=== PATIENT | male | born 2000 | race Two or more races ===

== ENCOUNTER 2025-08-20 17:07 | Emergency (ER) | payer SELFPAY ==
--- NOTE | ~2025-08-20 | XR_ITS ---
EXAMINATION: XR CERVICAL SPINE CLINICAL INFORMATION: Right neck pain COMPARISON: None available. TECHNIQUE: AP lateral and atlantoodontoid views. FINDINGS: Craniocervical junction is intact. No acute cortical disruption grade 1 retrolisthesis C3-4 and likely C4-5. No lytic or blastic lesions. Upper airway is patent.. XR/XR cervical spine 3V IMPRESSION: Grade 1 retrolisthesis C3-4 and C4-C5. Recommend further imaging evaluation with the MRI cervical spine. Electronically signed by: Gab Murphy MD 08/21/2025 07:47 AM EDT
[2025-08-20 17:19] VITALS: BP 136/84; PULSE 88; RESP 15; TEMP 36.7; O2SAT 97; BMI 20.1
--- NOTE | 2025-08-20 17:23 | ED.GENADULT ---
HPI - General Adult General Chief complaint: Neck Pain/Injury Stated complaint: Neck pain Time Seen by Provider: 08/20/25 20:17 Source: patient Limitations: no limitations History of Present Illness ED Provider: Mary Beth Cornejo PA-C HPI narrative: 25-year-old male presents with a stiff neck x3 days. 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 He states he woke up 1 morning with a stiff neck, that has not to ibuprofen. Pain is beginning to radiate down right upper extremity. Denies weakness of upper extremities, paresthesia, headache, nausea vomiting, or vision changes. No fevers. Related Data Previous Rx's ?Medication ?Instructions ?Recorded diazepam 10 mg tablet (Valium) 10 mg PO TID PRN muscle spasm #10 08/20/25 tabs ketorolac 10 mg tablet 10 mg PO Q6H PRN pain #20 tabs 08/20/25 methylprednisolone 4 mg tablets in 4 mg PO QAM #21 ea 08/20/25 a dose pack (Medrol (Luis Armando)) Allergies Allergy/AdvReac Type Severity Reaction Status Date / Time No Known Allergies Allergy Verified 08/20/25 17:21 Review of Systems Review of Systems: Yes all other systems are reviewed and are negative Constitutional: Constitutional: Denies fatigue, Denies fever(s) and Denies headache(s) Eyes: Eyes: Denies change in vision ENT: Denies dizziness, Denies headache(s) and Reports neck pain Cardiovascular: Cardiovascular: Denies chest pain and Denies dyspnea Respiratory: Respiratory: Denies dyspnea Gastrointestinal: Gastrointestinal: Denies nausea and Denies vomiting Musculoskeletal: Musculoskeletal: Denies back pain, Reports neck pain, Denies numbness, Reports radiating pain into limb and Denies tingling Neurologic: Denies dizziness, Denies headache(s), Denies numbness and Denies tingling Endocrine: Endocrine: Denies fatigue PMF Past Medical History Attestation statement: The following information was validated with the patient. Social History Social History Advance Directives: No Advance Directives Information Provided: Yes Physical Exam ED Vital Signs: Vital Signs - 24 hr 08/20/25 17:19 08/20/25 18:50 Temperature 98.1 F 98.0 F Pulse Rate 88 92 Respiratory Rate 15 18 Blood Pressure 136/84 128/72 Pulse Oximetry 97 Oxygen Delivery Method Room Air Oxygen Flow Rate 97 BMI result Body Mass Index 20.1 Const Other: Alert well-appearing but does appear uncomfortable Orientation/consciousness: patient oriented x3 Neck Other: Minimal range of motion of the neck, he is holding his neck turn toward the right primarily, Resp Effort & Inspection: normal respiratory effort Cardio Other: Normal peripheral perfusion Skin Other: Warm dry no rash Neuro General: patient oriented x3, gait normal, no focal motor deficits and CN's II-XI intact bilaterally Psych Other: Cooperative Course Course Course Narrative: This is a Rapid Medical Examination (RME) performed by Bora Ruiz PA-C in triage. Full HPI, ROS, assessment and treatment plan per primary provider in the Main ED. Hx: 25 yo M here for eval of neck pain extending from right neck to right shoulder w/ difficulty moving his head to the left x3 days. reports waking up like this, believes he slept wrong. trialing motrin and lido patches without relief. PE/vitals: +right torticollis Plan: xr, meds Medical Decision Making Medical Decision Making MDM Narrative: 25-year-old male presents with a stiff neck x3 days. 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 He states he woke up 1 morning with a stiff neck, that has not to ibuprofen. Pain is beginning to radiate down right upper extremity. Denies weakness of upper extremities, paresthesia, headache, nausea vomiting, or vision changes. No fevers. No chronic issues History: Per patient I have considered the following differential diagnoses: Torticollis, meningitis, VAD, cervical radiculopathy, compression fracture Plan: X-ray ordered from triage it is unremarkable. The patient has torticollis in his developing radicular symptoms. We will treat accordingly. Thought about meningitis, however he has not had fevers, he does not have a headache, torticollis is a more plausible explanation for his stiff neck given the clinical picture. I do not feel he needs an LP. Thought about VAD, however there was no preceding heavy lifting injury, and he is neurologically intact. I have independently reviewed the following tests: X-ray cervical spine: Impression comes via fax No acute fracture and cervical spine no significant degenerative changes no prevertebral soft tissue swelling normal vertebral body alignment Differential Diagnosis Differential Diagnoses: The differential diagnosis associated with the presentation includes See medical decision-making Admission/Observation Consideration of admission/observation: Escalation of care including admission/observation considered Not applicable Radiology Impression Discussion of test interpretation with radiology: I have reviewed the radiologist's reading. Discharge Plan Discharge Clinical Impression: Torticollis Patient Disposition: Home, Self-Care Instructions: Spasmodic Torticollis (ED) Additional Instructions: You are being treated for stiff neck. The x-ray was normal, there are no bony abnormalities. See home care instructions. Take the Valium as directed this is a muscle relaxant, it will cause drowsiness do not drive or operate machinery while taking the medication. Use the ketorolac as directed this is an anti-inflammatory take it with food. Use the steroid taper as directed this is a 2nd anti-inflammatory take the medication in the morning. Follow up with your primary care as needed. Prescriptions: New diazepam [Valium] 10 mg tablet 10 mg PO TID PRN (Reason: muscle spasm) Qty: 10 0RF ketorolac 10 mg tablet 10 mg PO Q6H PRN (Reason: pain) Qty: 20 0RF Rx Instructions: maximum total duration of 5 days from all oral, intranasal, or parenteral formulations, the patient received an intramuscular dose of Toradol here in the emergency room methylprednisolone [Medrol (Luis Armando)] 4 mg tablets,dose pack 4 mg PO QAM Qty: 21 0RF Rx Instructions: Take per package instructions Print Language: Macedonian
[2025-08-20 18:50] VITALS: BP 128/72; PULSE 92; RESP 18; TEMP 36.7
[2025-08-20 22:45] VITALS: BP 117/64; PULSE 90; RESP 14; TEMP 37; O2SAT 95
[2025-08-20 23:08] VITALS: BP 117/64; PULSE 90; RESP 14; TEMP 37; O2SAT 95
== END 2025-08-20 23:09 | disposition home or self-care (01) ==
PROVIDERS: Emergency Provider Emergency Medicine
DX: S13.4XXA Sprain of ligaments of cervical spine, initial encounter (principal); X58.XXXA Exposure to other specified factors, initial encounter; Y93.9 Activity, unspecified; Y92.9 Unspecified place or not applicable
CPT/HCPCS: 72040; 96372; 99283; 99284; J1885

== ENCOUNTER → 2025-08-20 17:25 | Outpatient (BNV) | payer SELFPAY | PROVIDERS: Emergency Provider Emergency Medicine; Visit Provider Radiology Diagnostic Radiology | DX: M54.2 Cervicalgia (principal) | CPT/HCPCS: 72040 ==